=== PATIENT | female | born 1985 | race American Indian/Alaskan Native ===

== ENCOUNTER 2021-03-27 08:37 | Inpatient (IN) | payer MEDICAID ==
[2021-03-27] MEDS ORDERED: TERBUTALINE 1 MG/1 ML INJ SUB-Q PRN (11:02)
[2021-03-27] MEDS ORDERED: ePHEDrine SULFATE 50 MG/1 ML INJ IV PRN (11:02)
[2021-03-27] MEDS ORDERED: LIDOCAINE (2%) 20 MG/1 ML VIAL 20 ML MDV INFILTRATI NR (11:02)
[2021-03-27] MEDS ORDERED: DINOPROSTONE 10 MG VAG SUPP VG NR (11:17)
[2021-03-27] MEDS ORDERED: AMPICILLIN/NS 2 GM/100 ML 2 GM/100 ML BAG IV ONE (11:17)
[2021-03-27] MEDS ORDERED: BUTORPHANOL 2 MG/1 ML INJ IV PRN ×2 (11:30)
[2021-03-27] MEDS ORDERED: fentaNYL 100 MCG/2 ML INJ IV PRN (11:30)
--- NOTE | 2021-03-27 11:49 | History and Physical Report ---
History of Present Illness Date of examination: 03/27/21 Date of admission: 03/27/21 08:37 Chief complaint: "I am scheduled for an induction today" History of present illness: 35 y/o presented to L&D for an IOL r/t AMA, CHTN, Pregestational DM, and thrombocytopenia, nephropathy. Pt initiated her pnc at [facility]. She was co managed by [facility]. Pt initially refused her scheduled induction for 03/20/21. She takes Labetalol 100mg bid, LDA, and Glyburide 5mg po bid before meals. Pt was admitted to L&D for an IOL. PNLs were not available. [facility] staff were called for records. Past History Past Medical History: hypertension, diabetes Past Surgical History: no surgical history Family/Genetic History: other (pt's mother is @ 46, unknown cause) Social history: no significant social history, full code - Obstetrical History Expected Date of Delivery: 04/01/21 Actual Gestation: 39 Week(s) 2 Day(s) : 6 Para: 5 Number of Pregnancies: 0 Spontaneous Abortions: 2 Number of Living Children: 5 Medications and Allergies Allergies Allergy/AdvReac Type Severity Reaction Status Date / Time No Known Allergies Allergy Unverified 03/27/21 10:05 Home Medications Medication Instructions Recorded Confirmed Last Taken Type Vit-Fe Fumar-FA [ 1 tab PO QDAY 03/27/21 03/27/21 03/26/21 History Vitamin] glyBURIDE [Diabeta] 5 mg PO BID 03/27/21 03/27/21 03/26/21 History labetaloL [Labetalol 100mg TAB] 100 mg PO BID 03/27/21 03/27/21 03/27/21 08:00 History Active Meds: Active Medications Butorphanol Tartrate (Butorphanol 2 Mg/1 Ml Inj) 1 mg IV Q2H PRN PRN Reason: Pain, Moderate(4-6) LABOR PAIN Butorphanol Tartrate (Butorphanol 2 Mg/1 Ml Inj) 2 mg IV Q2H PRN PRN Reason: Pain , Severe (7-10) Dinoprostone (Dinoprostone 10 Mg Vag Supp) 10 mg VG ONCE ONE Stop: 03/27/21 11:18 Ephedrine Sulfate (Ephedrine Sulfate 50 Mg/1 Ml Inj) 10 mg IV Q2M PRN PRN Reason: Hypotension Fentanyl (Fentanyl 100 Mcg/2 Ml Inj) 100 mcg IV Q2H PRN PRN Reason: Pain,Severe (7-10) LABOR PAIN Oxytocin/Sodium Chloride (Pitocin/Ns 30 Unit/500ml) 30 units in 500 mls @ 2 mls/hr IV TITR CAN; Protocol Lactated Ringer's (Lactated Ringers) 1,000 mls @ 125 mls/hr IV DIRECT CAN Oxytocin/Sodium Chloride (Pitocin/Ns 30 Unit/500ml) 30 units in 500 mls @ 40 mls/hr IV TITR CAN; Protocol Ampicillin Sodium (Ampicillin/Ns 1 Gm/50 Ml) 1 gm in 50 mls @ 100 mls/hr IV Q4H CAN; Protocol Ampicillin Sodium (Ampicillin/Ns 2 Gm/100 Ml) 2 gm in 100 mls @ 100 mls/hr IV ONCE ONE; Protocol Stop: 03/27/21 12:16 Lidocaine (Lidocaine (2%) 20 Mg/1 Ml Vial 20 Ml Mdv) 20 ml INFILTRATI ONCE ONE Stop: 03/27/21 11:03 Mineral Oil (Mineral Oil 30 Ml Oral Liqd) 30 ml PO QHS PRN PRN Reason: Constipation Terbutaline Sulfate (Terbutaline 1 Mg/1 Ml Inj) 0.25 mg SUB-Q ONCE PRN PRN Reason: Hyperstimulation/Hypertonicity Review of Systems All systems: negative Eyes: deferred Ears, nose, mouth and throat: deferred Breasts: normal Genitourinary: normal appearance Rectal Exam: deferred - Vital Signs Vital signs: Vital Signs Pulse BP Pulse Ox 85 126/83 63 L 03/27/21 09:59 03/27/21 09:59 03/27/21 09:59 Temp Pulse Resp BP Pulse Ox 98.7 F 81 18 126/83 100 03/27/21 10:09 03/27/21 11:19 03/27/21 10:09 03/27/21 09:59 03/27/21 11:19 - Physical Exam Breasts: Positive: normal Abdomen: Positive: normal appearance, soft, normal bowel sounds Genitourinary (Female): Positive: normal external genitalia, normal perenium Vulva: both: normal Vagina: Positive: normal moisture Uterus: Positive: enlarged, normal contour, other (gravid) Adnexa: both: normal Anus/Rectum: Positive: normal perianal skin Extremities: Positive: normal - Obstetrical FHR: category 1 Uterine Contraction Monitor Mode: External Cervical Dilatation: 1 Cervical Effacement Percentage: 50 station: -4 Uterine Contraction Pattern: Absent Uterine Tone Measurement Phase: Resting Results Result Diagrams: 03/27/21 11:08 All other labs normal. Assessment and Plan A: IUP@ 39.2 wks AMA, CHTN, Pregestational diabetes Pos GBS, Nephropathy, Thrombocytopenia P: Admit to L&D for cervidil IOL Continuous monitoring PIH labs Continue Labetalol Continue Glyuride per FSBS stat then ac and hs GBS protocal Notify NICU Pain med/Epidural prn
[2021-03-27] MEDS: LACTATED RINGERS 1,000 ML IV SCH ×2 (11:51→22:23)
[2021-03-27 12:00] LABS: Hematocrit 33.6 % (30.3-42.9); Hemoglobin 11.9 gm/dl (10.1-14.3); Mean Corpuscular HGB Conc 35 % (30-34); Mean Corpuscular Volume 94 fl (79-97); Platelet Count 124 K/mm3 (140-440); Red Blood Count 3.59 M/mm3 (3.65-5.03); Red Cell Distribution Width 13.9 % (13.2-15.2)
[2021-03-27] MEDS ORDERED: OXYTOCIN DRIP 30 UNITS/500 ML BAG IV SCH ×2 (12:00)
[2021-03-27 15:06] LABS: Alanine Aminotransferase 12 units/L (7-56); Albumin 3.7 g/dL (3.9-5); Blood Urea Nitrogen 6 mg/dL (7-17); Calcium 9.5 mg/dL (8.4-10.2); Hemolysis Index 10
[2021-03-27 15:42] LABS: BUN/Creatinine Ratio 15
[2021-03-27] MEDS ORDERED: AMPICILLIN/NS 1 GM/50 ML 1 GM/50 ML BAG IV SCH (16:00)
[2021-03-27] MEDS ORDERED: glyBURIDE 5 MG TAB PO SCH (17:00)
[2021-03-27 21:31] LABS: Uric Acid 4.8 mg/dL (3.5-7.6)
[2021-03-27] MEDS ORDERED: MINERAL OIL 30 ML ORAL LIQD PO PRN (22:00)
[2021-03-28] MEDS: LACTATED RINGERS 1,000 ML IV SCH (08:31)
[2021-03-28] MEDS ORDERED: miSOPROStol 25 MCG TAB VG PRN (10:00)
[2021-03-28] MEDS ORDERED: miSOPROStol 25 MCG TAB ONE (10:21)
--- NOTE | 2021-03-28 10:37 | Progress Note ---
Assessment and Plan A: IUP @ 39 3/7 Weeks PreGestational Diabetes Chronic HTN Maternal Obesity GBS Positive P: Cytotec 25mg intravaginally Continue Accuchecks as ordered Continue Glyburide as ordered Continue Labetalol as ordered Continue GBS Prophylaxis IV Pain Control Subjective - Subjective Date of service: 03/28/21 Patient reports: movement normal, other (Complains of lower abd "internal pains". Denies HAs, visual changes, N&V, and epigastic pains) Objective - Vital Signs Vital Signs: Vital Signs - 12hr 03/27/21 03/27/21 03/27/21 22:34 22:39 22:44 Temperature Pulse Rate 90 76 74 Respiratory Rate Blood Pressure O2 Sat by Pulse 99 98 100 Oximetry 03/27/21 03/27/21 03/27/21 22:49 22:53 22:54 Temperature Pulse Rate 82 81 88 Respiratory Rate Blood Pressure 113/61 O2 Sat by Pulse 100 100 Oximetry 03/27/21 03/27/21 03/27/21 22:59 23:04 23:09 Temperature Pulse Rate 86 74 82 Respiratory Rate Blood Pressure O2 Sat by Pulse 100 100 100 Oximetry 03/27/21 03/27/21 03/27/21 23:14 23:19 23:24 Temperature Pulse Rate 76 71 74 Respiratory Rate Blood Pressure O2 Sat by Pulse 100 100 100 Oximetry 03/27/21 03/27/21 03/27/21 23:29 23:34 23:39 Temperature Pulse Rate 74 76 72 Respiratory Rate Blood Pressure O2 Sat by Pulse 100 100 100 Oximetry 03/27/21 03/27/21 03/27/21 23:44 23:49 23:52 Temperature Pulse Rate 76 96 H 85 Respiratory Rate Blood Pressure 119/66 O2 Sat by Pulse 100 100 Oximetry 03/27/21 03/27/21 03/28/21 23:54 23:59 00:04 Temperature 98.1 F Pulse Rate 82 77 80 Respiratory 18 Rate Blood Pressure O2 Sat by Pulse 100 100 100 Oximetry 03/28/21 03/28/21 03/28/21 00:09 00:14 00:19 Temperature Pulse Rate 75 74 81 Respiratory Rate Blood Pressure O2 Sat by Pulse 100 100 100 Oximetry 03/28/21 03/28/21 03/28/21 00:24 01:11 01:53 Temperature Pulse Rate 99 H 76 Respiratory Rate Blood Pressure 141/76 O2 Sat by Pulse 100 91 Oximetry 03/28/21 03/28/21 03/28/21 02:54 03:53 04:56 Temperature Pulse Rate 87 88 93 H Respiratory Rate Blood Pressure 143/81 132/78 O2 Sat by Pulse 100 Oximetry 03/28/21 03/28/21 03/28/21 04:58 05:01 05:06 Temperature Pulse Rate 84 93 H 77 Respiratory Rate Blood Pressure 160/76 O2 Sat by Pulse 99 99 Oximetry 03/28/21 03/28/21 03/28/21 05:11 05:16 05:21 Temperature Pulse Rate 86 93 H 76 Respiratory Rate Blood Pressure O2 Sat by Pulse 100 99 99 Oximetry 03/28/21 03/28/21 03/28/21 05:26 05:31 05:36 Temperature Pulse Rate 75 84 78 Respiratory Rate Blood Pressure O2 Sat by Pulse 99 99 99 Oximetry 03/28/21 03/28/21 03/28/21 05:41 05:46 06:37 Temperature Pulse Rate 103 H 97 H 91 H Respiratory Rate Blood Pressure 136/68 O2 Sat by Pulse 99 99 Oximetry 03/28/21 10:03 Temperature 99.5 F Pulse Rate Respiratory Rate Blood Pressure O2 Sat by Pulse Oximetry - Exam Breasts: normal Cardiovascular: Regular rate Lungs: Clear to auscultation, Normal air movement Abdomen: Present: normal appearance, soft Uterus: Present: normal, firm, fundal height above umbilicus FHR: category 1 Uterine Contraction Monitor Mode: External Cervical Dilatation: 2 Cervical Effacement Percentage: 20 station: -3 Uterine Contraction Pattern: Irregular Uterine Tone Measurement Phase: Resting Uterine Contraction Intensity: Mild Extremities: normal - Labs Labs: Abnormal Labs 03/27/21 03/27/21 03/28/21 11:08 13:55 04:39 RBC 3.59 L MCH 33 H MCHC 35 H Plt Count 124 L Sodium 134 L Carbon Dioxide 21 L BUN 6 L Creatinine 0.4 L Glucose 153 H POC Glucose 68 L Albumin 3.7 L Laboratory Results - last 24 hr 03/27/21 03/27/21 03/27/21 11:08 11:08 11:32 WBC 5.2 RBC 3.59 L Hgb 11.9 Hct 33.6 MCV 94 MCH 33 H MCHC 35 H RDW 13.9 Plt Count 124 L Sodium Potassium Chloride Carbon Dioxide Anion Gap BUN Creatinine Estimated GFR BUN/Creatinine Ratio Glucose POC Glucose 80 Uric Acid Calcium Total Bilirubin AST ALT Alkaline Phosphatase Total Protein Albumin Albumin/Globulin Ratio Blood Type O POSITIVE Antibody Screen Negative 03/27/21 03/27/21 03/27/21 13:55 16:18 20:26 WBC RBC Hgb Hct MCV MCH MCHC RDW Plt Count Sodium 134 L Potassium 3.9 Chloride 103.3 Carbon Dioxide 21 L Anion Gap 14 BUN 6 L Creatinine 0.4 L Estimated GFR > 60 BUN/Creatinine Ratio 15 Glucose 153 H POC Glucose 87 84 Uric Acid 4.8 Calcium 9.5 Total Bilirubin 0.60 AST 20 ALT 12 Alkaline Phosphatase 96 Total Protein 6.3 Albumin 3.7 L Albumin/Globulin Ratio 1.4 Blood Type Antibody Screen 03/28/21 03/28/21 00:39 04:39 WBC RBC Hgb Hct MCV MCH MCHC RDW Plt Count Sodium Potassium Chloride Carbon Dioxide Anion Gap BUN Creatinine Estimated GFR BUN/Creatinine Ratio Glucose POC Glucose 71 68 L Uric Acid Calcium Total Bilirubin AST ALT Alkaline Phosphatase Total Protein Albumin Albumin/Globulin Ratio Blood Type Antibody Screen
--- NOTE | 2021-03-28 14:20 | Progress Note ---
Assessment and Plan A: IUP @ 39 3/7 Weeks Category I Tracing Active Labor PreGestational Diabetes Chronic HTN Maternal Obesity GBS Positive P: AROM Start Pitocin Augmentation Continue Accuchecks as ordered Continue Glyburide as ordered Continue Labetalol as ordered Continue GBS Prophylaxis IV Pain Control Subjective - Subjective Date of service: 03/28/21 Patient reports: movement normal, contractions Objective - Vital Signs Vital Signs: Vital Signs - 12hr 03/28/21 03/28/21 03/28/21 02:54 03:53 04:56 Temperature Pulse Rate 87 88 93 H Blood Pressure 143/81 132/78 O2 Sat by Pulse 100 Oximetry 03/28/21 03/28/21 03/28/21 04:58 05:01 05:06 Temperature Pulse Rate 84 93 H 77 Blood Pressure 160/76 O2 Sat by Pulse 99 99 Oximetry 03/28/21 03/28/21 03/28/21 05:11 05:16 05:21 Temperature Pulse Rate 86 93 H 76 Blood Pressure O2 Sat by Pulse 100 99 99 Oximetry 03/28/21 03/28/21 03/28/21 05:26 05:31 05:36 Temperature Pulse Rate 75 84 78 Blood Pressure O2 Sat by Pulse 99 99 99 Oximetry 03/28/21 03/28/21 03/28/21 05:41 05:46 06:37 Temperature Pulse Rate 103 H 97 H 91 H Blood Pressure 136/68 O2 Sat by Pulse 99 99 Oximetry 03/28/21 03/28/21 03/28/21 10:03 10:28 12:45 Temperature 99.5 F Pulse Rate 91 H 73 Blood Pressure 136/68 137/74 O2 Sat by Pulse Oximetry 03/28/21 13:54 Temperature Pulse Rate 88 Blood Pressure 155/89 O2 Sat by Pulse Oximetry - Exam Breasts: normal Cardiovascular: Regular rate Lungs: Normal air movement Abdomen: Present: normal appearance, soft Uterus: Present: normal, firm, fundal height above umbilicus FHR: category 1 Uterine Contraction Monitor Mode: External Cervical Dilatation: 6 (Large amount of thin meconium stained fluids upon AROM at 1414) Cervical Effacement Percentage: 70 station: -2 Uterine Contraction Pattern: Irregular Uterine Tone Measurement Phase: Resting Uterine Contraction Intensity: Moderate Extremities: normal - Labs Labs: Abnormal Labs 03/27/21 03/27/21 03/28/21 11:08 13:55 04:39 RBC 3.59 L MCH 33 H MCHC 35 H Plt Count 124 L Sodium 134 L Carbon Dioxide 21 L BUN 6 L Creatinine 0.4 L Glucose 153 H POC Glucose 68 L Albumin 3.7 L Laboratory Results - last 24 hr 03/27/21 03/27/21 03/27/21 13:55 16:18 20:26 Sodium 134 L Potassium 3.9 Chloride 103.3 Carbon Dioxide 21 L Anion Gap 14 BUN 6 L Creatinine 0.4 L Estimated GFR > 60 BUN/Creatinine Ratio 15 Glucose 153 H POC Glucose 87 84 Uric Acid 4.8 Calcium 9.5 Total Bilirubin 0.60 AST 20 ALT 12 Alkaline Phosphatase 96 Total Protein 6.3 Albumin 3.7 L Albumin/Globulin Ratio 1.4 03/28/21 03/28/21 00:39 04:39 Sodium Potassium Chloride Carbon Dioxide Anion Gap BUN Creatinine Estimated GFR BUN/Creatinine Ratio Glucose POC Glucose 71 68 L Uric Acid Calcium Total Bilirubin AST ALT Alkaline Phosphatase Total Protein Albumin Albumin/Globulin Ratio
[2021-03-28] MEDS ORDERED: miSOPROStol 200 MCG TAB ONE (15:45)
[2021-03-28] MEDS ORDERED: miSOPROStol 100 MCG TAB ONE (15:45)
[2021-03-28] MEDS ORDERED: HYDROcodone/ACETAMINOPHEN 5-325 MG TAB PO PRN (16:00)
[2021-03-28] MEDS ORDERED: diphenhydrAMINE 25 MG CAP PO PRN (16:00)
[2021-03-28] MEDS ORDERED: WITCH HAZEL/ GLYCERIN PAD TP PRN (16:00)
[2021-03-28] MEDS ORDERED: LANOLIN/ZINC/DIMETHICONE (LANSINOH) 7 GM TP PRN (16:00)
--- NOTE | 2021-03-28 16:00 | Procedure Note ---
OB Delivery Note - Delivery Date of Delivery: 03/28/21 (Female) [employer] Site Manager: BRENDAN BOLDEN (Devon BROWN) Estimated blood loss: 200cc - Vaginal Delivery presentation: vertex Delivery position: OA (ALMA) Intrapartum events: none Delivery induction: misoprostol Delivery augmentation: rupture of membranes, pitocin Delivery monitor: external FHT, external uterine Route of delivery: Delivery placenta: spontaneous Delivery cord: 3 umbilical vessels Episiotomy: none Delivery laceration: none Anesthesia: intravenous Delivery comments: Assisted with precipitous delivery, MIRACLE Carrizales at bedside before delivery of placenta. Viable female infant delivered over intact perineum. Right shoulder delivered anterior. to mothers abdomen. Cord clamped and cut after cessation of pulsation. Cord blood collected. Placenta delivered spontaneously and intact. EBL 200cc. No tears. Sponges and instruments counted and correct, verified by RN. and mother stable and remains in LDRP. Devon BROWN/ Brendan SHORTM. - A at 1 minute: 9 at 5 minutes: 9 (7lbs 9oz) Gender: Female
[2021-03-28] MEDS: IBUPROFEN 600 MG TAB PO SCH (20:50)
[2021-03-28] MEDS ORDERED: HYDROCORTISONE 25 MG RECTAL SUPP PR PRN (22:00)
[2021-03-29] MEDS: IBUPROFEN 600 MG TAB PO SCH ×4 (04:31→21:30)
[2021-03-29 05:28] LABS: Hematocrit 33.3 % (30.3-42.9); Hemoglobin 11.7 gm/dl (10.1-14.3)
--- NOTE | 2021-03-29 20:59 | Progress Note ---
Assessment and Plan PPD #1 A: S/P Pregestational DM p: Continue routine pp care Continue monitoring FSBS as scheduled D/C home tomm if stable Subjective - Subjective Date of service: 03/29/21 Principal diagnosis: s/p Interval history: 35 y/o presented to L&D for an IOL r/t AMA, CHTN, Pregestational DM, and thrombocytopenia, nephropathy. Pt initiated her pnc at [facility]. She was co managed by [facility]. Pt initially refused her scheduled induction for 03/20/21. She takes Labetalol 100mg bid, LDA, and Glyburide 5mg po bid before meals. Pt was admitted to L&D for an IOL. PNLs were not available. [facility] staff were called for records. Patient reports: appetite normal, voiding normally, pain well controlled, ambulating normally : doing well, bottle feeding Objective - Vital Signs Latest vital signs: Vital Signs Temp Pulse Resp BP BP Pulse Ox 03/29/21 16:30 98.2 F 76 18 142/84 99 03/29/21 12:11 98.0 F 78 18 121/83 99 03/29/21 10:06 15 03/29/21 08:49 98.2 F 66 18 122/71 98 03/29/21 01:13 98.8 F 94 H 20 103/52 99 Intake and Output 03/29/21 03/29/21 03/29/21 06:59 14:59 22:59 Intake Total 240 Output Total 600 Balance -360 Intake: Oral 240 Output: Urine 600 Void 600 Other: Total, Intake Amount 240 Total, Output Amount 600 # Voids Void 3 - Exam Breasts: Present: normal Abdomen: Present: normal appearance, soft, normal bowel sounds Vulva: both: normal Uterus: Present: normal, firm, fundal height below umbilicus Extremities: Present: normal - Labs Labs: Abnormal lab results 03/28/21 03/29/21 03/29/21 Range/Units 23:28 12:05 12:55 POC Glucose 167 H 68 L 141 H (70-105) mg/dL
[2021-03-30] MEDS: IBUPROFEN 600 MG TAB PO SCH ×2 (05:40→12:33)
--- NOTE | 2021-03-30 07:18 | Discharge Summary ---
Providers - Providers Date of Admission: 03/27/21 08:37 Date of discharge: 03/30/21 Attending physician: SIENA WORKMAN MD Primary care physician: SIENA WORKMAN MD Hospitalization Reason for admission: induction of labor Delivery: Episiotomy: none Laceration: none Other procedures: none complications: none Discharge diagnosis: IUP at term delivered [place] baby: female Hospital course: Pt was admitted for an IOL r/t chtn, AMA, and DM. She had a w/o pp complications. See H&P, delivery summary, and pp notes. Condition at discharge: Stable Disposition: DC-01 TO HOME OR SELFCARE Plan - Discharge Medications Prescriptions: Ibuprofen [Motrin 600 MG tab] 600 mg PO Q6H #30 tablet - Provider Discharge Summary Activity: routine, no sex for 6 weeks, no heavy lifting 4 weeks, no strenuous exercise Diet: other (diabetic) Instructions: routine Additional instructions: [] Smoking cessation referral if applicable(refer to patient education folder for contact #) [] Refer to [facility]'s [facility] Booklet Call your doctor immediately for: * Fever > 100.5 * Heavy vaginal bleeding ( >1 pad per hour) * Severe persistent headache * Shortness of breath * Reddened, hot, painful area to leg or breast * Drainage or odor from incision. * Keep incision clean and dry at all times and follow doctor's instructions regarding bathing/showering - Follow up plan Follow up: SIENA WORKMAN MD [Primary Care Provider] - 6 Weeks
[2021-03-30 14:57] VITALS: BP 136/76
== END 2021-03-30 16:45 | disposition home or self-care (01) | DRG 774 ==
LOC: LD 08:37 → OB 03-28 18:19
PROC: 10E0XZZ Delivery of Products of Conception, External Approach (ICD-10-PCS; principal; 2021-03-28)
PROC: 3E033VJ Introduction of Other Hormone into Peripheral Vein, Percutaneous Approach (ICD-10-PCS; 2021-03-28)
PROC: 10907ZC Drainage of Amniotic Fluid, Therapeutic from Products of Conception, Via Natural or Artificial Opening (ICD-10-PCS; 2021-03-28)
DX: O99.824 Streptococcus B carrier state complicating childbirth (principal); O24.32 Unspecified pre-existing diabetes mellitus in childbirth; Z20.822 Contact with and (suspected) exposure to COVID-19; O99.214 Obesity complicating childbirth; O10.92 Unspecified pre-existing hypertension complicating childbirth; O26.833 Pregnancy related renal disease, third trimester; D69.6 Thrombocytopenia, unspecified; N28.9 Disorder of kidney and ureter, unspecified; E11.9 Type 2 diabetes mellitus without complications; Z3A.39 39 weeks gestation of pregnancy; Z37.0 Single live birth; O09.523 Supervision of elderly multigravida, third trimester; Z79.899 Other long term (current) drug therapy
CPT/HCPCS: 36415; 59025; 59200; 80053; 82962; 84550; 85014; 85018; 85027; 86850; 86900; 86901; 96360; G0378; J0290; J0595; J2590; J7120; U0003